=== PATIENT | female | born 1985 | race Caucasian/White ===

== ENCOUNTER 2016-05-31 07:57 | Day surgery (SDC) | payer OTHER ==
[~2016-05-31 07:57] MED LIST: Dexamethasone 4 MG/ML 5 ML MDV ONE; Lactated Ringers 1,000 ML IV SCH; Midazolam 1 MG/ML 2 ML SDV ONE; Ondansetron 4 MG/2 ML SDV ONE; Propofol 200 MG/20 ML SDV ONE; ceFAZolin 1 GM in Premix Bag 1 BAG IV ONE; fentaNYL 250 MCG/5 ML SDV ONE
[2016-05-31] MEDS ORDERED: Scopolamine 1.5 MG Transdermal Patch TRDERM PRN (08:45)
--- NOTE | 2016-05-31 08:56 | PCM.PREANE ---
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 Hematologic History: Reports: Blood transfusion(s) Other Hematologic History: blood transfusion after 2nd c/section - Infectious Disease History Infectious Disease History: Reports: Chicken pox - Past Surgical History Head Surgeries/Procedures: Reports: None HEENT Surgical History: Reports: Other (see below) Other HEENT Surgeries/Procedures: cleft palate/lip surgeries, multiple staged procedure from infancy to age 16 (bone graft) GI Surgical History: Reports: Appendectomy Female Surgical History: Reports: section Other Female Surgeries/Procedures: c/section x3 - SUBSTANCE USE Smoking Status *Q: Never Smoker Second Hand Smoke Exposure: No Recreational Drug Use History: No - HOME MEDS Home Medications: Home Meds PNV95/Ferrous Fumarate/FA [ Vitamins Tablet] 1 tab PO TID 05/30/16 [ History] Sertraline HCl 50 mg PO DAILY 05/30/16 [History] - CURRENT (IN HOUSE) MEDS Current Meds: Current Medications Lactated Ringer's (Ringers, Lactated) 1,000 mls @ 125 mls/hr IV ASDIRECTED JESUS MANUEL Last Admin: 05/31/16 08:31 Dose: 125 mls/hr Scopolamine (Transderm-Scop) 1.5 mg TRDERM Q72H PRN PRN Reason: Nausea Discontinued Medications Dexamethasone (Dexamethasone) Confirm Administered Dose 20 mg .ROUTE .STK-MED ONE Stop: 05/31/16 07:05 Fentanyl (Sublimaze) Confirm Administered Dose 250 mcg .ROUTE .STK-MED ONE Stop: 05/31/16 07:03 Cefazolin Sodium/Dextrose 1 gm (/ Premix) 50 mls @ 100 mls/hr IV ONETIME ONE Stop: 05/31/16 06:29 Lidocaine HCl (Xylocaine-Mpf 1%) Confirm Administered Dose 5 ml .ROUTE .STK-MED ONE Stop: 05/31/16 07:05 Midazolam HCl (Versed 1 Mg/Ml) Confirm Administered Dose 2 mg .ROUTE .STK-MED ONE Stop: 05/31/16 07:02 Ondansetron HCl (Zofran) Confirm Administered Dose 4 mg .ROUTE .STK-MED ONE Stop: 05/31/16 07:05 Propofol (Diprivan 20 Ml) Confirm Administered Dose 200 mg .ROUTE .STK-MED ONE Stop: 05/31/16 07:02 Preanesthetic Assessment - ANESTHESIA/TRANSFUSION/FAMILY HX Anesthesia/Transfusion History: Prior Anesthesia Type of Anesthesia Reaction: Denies: Allergy, Anesthesia Awareness, Excessive Somnolence, Excessive Nausea/Vomiting, Excessive Itching, Excessive Shivering, Malignant Hyperthermia, Malignant Hyperthermia, Family History, Pseudocholinesterase Deficiency, Pseudocholinesterase Deficiency, Family History of, Urinary Retention, Unknown, Other (see below) Family History of Anesthesia Reaction: No Other Intubation History Comment: no known problems - REVIEW OF SYSTEMS Constitutional: Reports: no symptoms 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 Respiratory: Reports: no symptoms Cardiovascular: Reports: no symptoms GI: Reports: no symptoms Other: Reports: None - PHYSICAL ASSESSMENT Height: 1.63 m Weight: 61.235 kg ASA Class: 2 Mental Status: Alert & Oriented x3 Airway Class: Mallampati = 2 Dentition: Reports: Normal Dentition Thyro-Mental Finger Breadths: 3 Mouth Opening Finger Breadths: 3 ROM/Head Extension: Full Respiratory Status: lungs clear to auscultation bilaterally Cardiovascular Status: regular rate & rhythm, normal S1, S2, no murmur, blood pressure WNL - LAB Values: Laboratory Last Values Urine HCG, Qual NEGATIVE (NEGATIVE) 05/31/16 08:00 - ALLERGIES Allergies/Adverse Reactions: Allergies Allergy/AdvReac Type Severity Reaction Status Date / Time morphine Allergy Itching Verified 05/28/15 17:08 MDT - BLOOD Blood Available: No - ANESTHESIA PLAN Preop Beta Grant: No Anesthesia Type Planned: General Anesthesia - ACKNOWLEDGEMENTS Pt an Appropriate Candidate for the Planned Anesthesia: Yes Alternatives and Risks of Anesthesia Discussed w Pt/Guardian: Yes Pt/Guardian Understands and Agrees with Anesthesia Plan: Yes
[2016-05-31] MEDS ORDERED: Bupivacaine 0.5% 30 ML SDV ONE (09:28)
[2016-05-31] MEDS ORDERED: ceFAZolin 1 GM Vial ONE (09:28)
[2016-05-31] MEDS ORDERED: Acetaminophen/HYDROcodone 325-5 MG Tab PO PRN (10:38)
[2016-05-31] MEDS ORDERED: fentaNYL 100 MCG/2 ML SDV ONE (10:38)
[2016-05-31] MEDS: fentaNYL 100 MCG/2 ML SDV IVPUSH PRN ×4 (10:40→11:36)
--- NOTE | 2016-05-31 10:42 | PCM.OPNOTE ---
- General Post-Op/Procedure Note Date of Surgery/Procedure: 05/31/16 Operative Procedure(s): Repair incarcerated umbilical hernia with 4.3 cm Ventralex mesh Pre Op Diagnosis: Incarcerated umbilical hernia Post-Op Diagnosis: Same Anesthesia Technique: General LMA (ASA II) Primary Surgeon: Catalino Wilkes Fluid Replacement, Intraop: 800 EBL in mLs: 10 Condition: Good Free Text/Narrative:: Dictation [id number]
[2016-05-31] MEDS ORDERED: Lactated Ringers 1,000 ML IV SCH (10:45)
[2016-05-31] MEDS ORDERED: Ketorolac 30 MG/ML SDV IVPUSH ONE (11:42)
--- NOTE | 2016-05-31 12:01 | PCM48HPAN ---
Post Anesthesia Note - EVALUATION WITHIN 48HRS OF ANESTHETIC Vital Signs in Normal Range: Yes Patient Participated in Evaluation: Yes Respiratory Function Stable: Yes Airway Patent: Yes Cardiovascular Function Stable: Yes Hydration Status Stable: Yes Pain Control Satisfactory: Yes Nausea and Vomiting Control Satisfactory: Yes Mental Status Recovered: Yes
[2016-05-31 14:02] VITALS: BP 108/66
--- NOTE | 2016-05-31 16:24 | OR ---
SURGEON: Catalino Wilkes M.D. DATE OF PROCEDURE: 05/31/2016 OPERATION PERFORMED: Repair of incarcerated umbilical hernia with 4.3 cm Ventralex mesh. ANESTHESIA: General LMA. PREOPERATIVE DIAGNOSIS: Incarcerated umbilical hernia. POSTOPERATIVE DIAGNOSIS: Incarcerated umbilical hernia. ESTIMATED BLOOD LOSS: 10 mL. IV FLUID REPLACEMENT: 800 mL of crystalloid ASA CLASSIFICATION: II. DESCRIPTION OF PROCEDURE: The patient was taken to the operating room and placed on the operating table in the supine position. Time-out was called for appropriate identification of the patient and procedure. Thigh-high Aneudy's and sequential compression boots were placed. Following satisfactory attainment of general anesthesia with placement of an LMA, the abdomen was prepped with DuraPrep solution. Sterile drapes were applied. The skin was infiltrated with 0.5% Marcaine solution. A vertical incision was made just to the right of the umbilicus and extended through the subcutaneous tissue obtaining hemostasis with the use of electrocautery. The hernia sac was dissected free with a combination of sharp dissection and cautery. Bleeding sites were electrocoagulated. One vessel was suture ligated with 3-0 Vicryl. The appropriate space under the fascial defect was cleared for placement of the Ventralex mesh. A 4.3 cm Ventralex mesh was brought to the operating table and soaked in 1% Ancef solution. The mesh was then placed in an underlay fashion and secured with interrupted 0 Ethibond sutures. All sutures were placed under direct vision and held with hemostats until the final suture was placed. Sutures were then secured. The patient was given a Valsalva maneuver to 35 cm of water. The repair was solid. The fascia was then closed over the mesh again with interrupted 0 Ethibond sutures. Small bleeding sites were electrocoagulated. The incision was irrigated with 1% Ancef solution. The subcutaneous tissue was closed with 3-0 Polysorb, and the skin edges were reapproximated with subcuticular 4-0 Maxon. The incision was then Steri- Stripped and dressed with a sterile Tegaderm pad. Sponge, needle, and instrument counts were all correct. The patient tolerated the procedure well. Following emergence from anesthesia and extubation, she was taken to recovery room in satisfactory condition. JACOB / FILIBERTO /[id number]
== END 2016-05-31 13:45 | disposition home or self-care (01) ==
LOC: MW.SDS 07:57
PROVIDERS: ATTEND Surgery
PROC: 0WUF0JZ Supplement Abdominal Wall with Synthetic Substitute, Open Approach (ICD-10-PCS; principal; 2016-05-31)
DX: K42.9 Umbilical hernia without obstruction or gangrene (principal); M06.4 Inflammatory polyarthropathy; F32.9 Major depressive disorder, single episode, unspecified; Z88.5 Allergy status to narcotic agent; Z90.49 Acquired absence of other specified parts of digestive tract; Z98.890 Other specified postprocedural states; Z79.899 Other long term (current) drug therapy
CPT/HCPCS: 49585; 81025; A9270; J0690; J1100; J1885; J2250; J2405; J3010; J7120; 00750; C1781; J2704